=== PATIENT | male | born 1960 | race Asian ===

== ENCOUNTER 2019-07-23 12:04 | Inpatient (IN) | payer OTHER ==
[~2019-07-23] VITALS: Ht 172.7 cm; Wt 87.0 kg
--- NOTE | 2019-07-23 12:10 | NUR ---
LATE ENTRY D/T PATIENT CARE: PT BROUGHT BY [facility] FROM [facility]; PT REPORTS HE AWOKE THIS AM (UNABLE TO RECALL TIME BUT STATES "BETWEEN 7 AND 9AM") WITH SLURRED SPEECH AND DIZZINESS. PT PRESENTED TO [facility] AT 1020 AM, CT HEAD PERFORMED AT [facility] SHOWED 8-9MM MOLINA BLEED. PER EMS, PT'S INITIAL BP AT [facility] WAS SYSTOLIC 240. ON ARRIVAL, PT'S SPEECH IS CLEAR, SLIGHT LEFT MOUTH DROOP NOTED. PT IS SLIGHTLY WEAKER TO LEFT UPPER AND LOWER EXTREMITY, LEFT GRASP SLIGHTLY WEAKER. LEFT UPPER ARM WAVERS SLIGHTLY WHEN PERFORMING DRIFT ASSESSMENT, HOWEVER THERE IS NO DRIFT TO UPPER OR LOWER EXTREMITIES. PUPILS ARE EQUAL, ROUND AND REACTIVE. PT IS A&OX4, DENIES PAIN, DENIES N/T. PT FOLLOWS COMMANDS AND SPEAKS IN FULL SENTENCES. PT REPORTS BLURRINESS TO LEFT VISUAL FEILD. EKG COMPLETED ON ARRIVAL BY EDT, FINGERSTICK GLUCOSE OBTAINED (132), PT ATTACHED TO ALL MONITORS. MD HAN AT BEDSIDE PERFORMING INITIAL ASSESSMENT. HEAD OF BED KEPT AT 15 DEGREES PER MD ORDER. PT ARRIVED TO ED ON NICARDAMINE GTT STARTED SIGNAL OPERATOR LINGUIST AT 5MG/HR, MD GAVE VERBAL ORDER TO CONTINUE THIS DRIP AT 5MG/HR. PER MD, TARGET BP IS SYSTOLIC 130-140. PT CHANGED INTO YELLOW GOWN. BILATERAL AC [address], PLACED SIGNAL OPERATOR LINGUIST. BOTH FLUSH EASILY WITH BLOOD RETURN. CALL LIGHT IN REACH, PT UPDATED WITH POC.
[2019-07-23] MEDS ORDERED: SODIUM CHLORIDE FLUSH 10ML SYR IVF ONE (12:30)
[2019-07-23] MEDS ORDERED: PLEASE ENTER HEIGHT AND WEIGHT MC SCH (12:30)
[2019-07-23] MEDS ORDERED: PLEASE ENTER ALLERGIES MC SCH (12:30)
--- NOTE | 2019-07-23 12:30 | NUR ---
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 IMAGING RESULTS FROM [facility] HAVE BEEN SENT WITH PATIENT, HOWEVER NO LAB RESULTS HAVE ARRIVED WITH PT.
--- NOTE | 2019-07-23 12:35 | NUR ---
LATE ENTRY D/T PATIENT CARE: PT TO CT WITH ED RN AND EDT. PER MD HAN, CT IS NOT TO BE DELAYED FOR LAB RESULTS.
--- NOTE | 2019-07-23 12:58 | NUR ---
PT BACK FROM CT, ALL MONITORS IN PLACE. PT REMAINS A&OX4, RESPS EVEN AND UNLABORED. NEURO STATUS UNCHANGED.
[2019-07-23] MEDS ORDERED: OMNIPAQUE 350 MG/ML, 100ML BOTTLE ONE (13:02)
--- NOTE | 2019-07-23 13:06 | NUR ---
LATE ENTRY D/T PATIENT CARE: NEW NICARDAMINE GTT ARRIVED FROM PHARMACY, NICARDAMINE GTT STARTED BY EMS EXCHANGED FOR NICARADMINE GTT PROVIDED BY [facility].
--- NOTE | 2019-07-23 13:16 | NUR ---
PT IS AWAKE, ALERT AND ORIENTED X 4. PT DENIES PAIN, DENIES NAUSEA, DENIES N/T. PT DEMONSTRATES SLIGHT WEAKNESS TO LEFT UPPER EXTREMITY, AND LEFT LOWER EXTREMITY, LEFT DORSIFLEXION IS SLIGHTLY WEAKER THAN RIGHT, LEFT GRASP SLIGHTLY WEAKER THAN RIGHT. MILD LEFT SIDED MOUTH DROOP STILL PRESENT. MILD LEFT SIDED PT REPORTS LEFT SIDED BLURRED VISION SINCE AWAKENING THIS AM, HOWEVER PT REPORTS THIS IS IMPROVING AT THIS TIME. PT'S NEURO STATUS HAS REMAINED UNCHANGED SINCE ARRIVAL. PT DENIES N/T, DENIES NAUSEA, DENIES PAIN. PUPILS EQUAL, ROUND AND REACTIVE. HEAD OF BED MAINTAINED AT 15 DEGREES PER MD ORDER. NICARDIPINE GTT IS CONTINUED AT 5MG/HR. AWAITING CTA RESULTS AND DISPO.
--- NOTE | 2019-07-23 13:26 | NUR ---
PT'S SON AND DAUGHTER HAVE ARRIVED AND ARE AT BEDSIDE, UPDATED WITH POC WITH PT PERMISSION. RECORDS WITH LAB RESULTS HAVE NOT ARRIVED YET FROM MD EMELY LYONS INFORMED. ORDERED LABS TO BE DRAWN. LAB AT BEDSIDE TO DRAW.
[2019-07-23] MEDS ORDERED: METOPROLOL PO (13:42)
[2019-07-23] MEDS ORDERED: LISINOPRIL PO (13:42)
[2019-07-23] MEDS ORDERED: INDOMETHACIN PO (13:42)
--- NOTE | 2019-07-23 13:42 | NUR ---
PT IS UNABLE TO RECALL DOSEAGES OF HOME MEDS, MED REC COMPLETED TO BEST OF PATIENT ABILITY.
[2019-07-23 13:45] LABS: INTERNATIONAL NORMALIZED RATIO 1.02 (0.93-1.1); PROTHROMBIN TIME 10.7 Seconds (9.6-11.5)
[2019-07-23 13:48] LABS: ALANINE AMINOTRANSFERASE 30 U/L (12-78); ANION GAP 7 mmol/L (5-15); CHLORIDE 103 mmol/L (98-107)
[2019-07-23 13:52] LABS: ALKALINE PHOSPHATASE 91 U/L (45-117); BILIRUBIN,TOTAL 0.6 mg/dL (0.2-1.0); TOTAL PROTEIN 8.8 g/dL (6.4-8.2)
--- NOTE | 2019-07-23 13:56 | NUR ---
report given to receiving HANK Olvera. pt awaiting transport to CCU at this time.
[2019-07-23 14:00] LABS: TROPONIN I 0.594 ng/mL (0.000-0.045)
--- NOTE | 2019-07-23 14:04 | NUR ---
MD HAN NOTIFIED PT'S TROPONIN IS 0.594. PER , NO ASPIRIN INDICATED. NO ADDITIONAL ORDERS GIVEN. OK'D TRANSPORT TO CCU.
--- NOTE | 2019-07-23 14:18 | NUR ---
PT TRANSPORTED BY RN AND TECH TO CCU ROOM 558. FAMILY ACCOMPANIED. UPON TRANSFER, PT HAD NO NEUROLOGICAL CHANGES. 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 PT HAD NO COMPLAINT AT TIME OF TRANSFER. RECEIVING RN NOTIFIED OF ELEVATED TROPONIN OF 0.594. PT MAINTAINED ON NICARDAMINE GTT AT 5MG/HR AT TIME OF TRANSFER. NADN AT TRANSFER. PT AND FAMILY UPDATED WITH POC.
[2019-07-23] MEDS ORDERED: ENALAPRILAT 1.25 MG/ML, 2ML IVPush PRN (16:00)
[2019-07-23] MEDS ORDERED: ONDANSETRON ODT 4 MG PO PRN (16:00)
[2019-07-23] MEDS ORDERED: LABETALOL 5MG/ML, 20ML IVPush PRN (16:00)
[2019-07-23] MEDS ORDERED: BISACODYL 10 MG SUPP PR PRN (16:00)
[2019-07-23] MEDS ORDERED: ONDANSETRON 2MG/ML, 2ML IVPush PRN (16:00)
[2019-07-23] MEDS ORDERED: POLYETHYLENE GLYCOL 17 GM PACKET PO PRN (16:00)
[2019-07-23] MEDS ORDERED: FLU VACC QS2019-20 36MOS UP/PF 0.5 ML IM-VACC ONE (17:00)
[2019-07-23] MEDS: METOPROLOL TARTRATE 25 MG TABLET PO SCH (18:20)
[2019-07-23 19:51] LABS: TROPONIN I 0.566 ng/mL (0.000-0.045)
[2019-07-23] MEDS: LISINOPRIL 20 MG TABLET PO SCH (20:33)
[2019-07-24 01:40] LABS: TROPONIN I 0.573 ng/mL (0.000-0.045)
[2019-07-24] MEDS: ACETAMINOPHEN 325 MG TABLET PO PRN ×2 (03:24→12:24)
[2019-07-24 04:14] VITALS: BP 108/65
[2019-07-24] MEDS: METOPROLOL TARTRATE 25 MG TABLET PO SCH ×2 (05:58→17:03)
[2019-07-24 08:21] LABS: BASOPHILS # (AUTO) 0.03 x10^3/uL (0-0.1); BASOPHILS % (AUTO) 0 % (0-1); EOSINOPHILS % (AUTO) 2 % (1-7); LYMPHOCYTES % (AUTO) 23 % (22-44); MD NO; MEAN CORPUSCULAR HEMOGLOBIN 30.5 pg (27.5-34.5); MEAN CORPUSCULAR HGB CONC 33.5 g/dL (33.2-36.2); MEAN CORPUSCULAR VOLUME 91.1 fL (81-97); MEAN PLATELET VOLUME 8.1 fL (7.4-10.4); MONOCYTES # (AUTO) 0.59 x10^3/uL (0.2-0.8); MONOCYTES % (AUTO) 6 % (2-9); NEUTROPHILS # (AUTO) 6.65 x10^3/uL (1.8-6.8); NEUTROPHILS % (AUTO) 69 % (42-75); PLATELET COUNT 280 x10^3/uL (130-400); RED BLOOD COUNT 5.29 x10^6/uL (4.38-5.82); RED CELL DISTRIBUTION WIDTH 12.4 % (9.4-14.8)
[2019-07-24 08:33] LABS: ALANINE AMINOTRANSFERASE 26 U/L (12-78); ALBUMIN 3.5 g/dL (3.4-5.0); ANION GAP 7 mmol/L (5-15); CALCIUM 8.5 mg/dL (8.5-10.1); CHLORIDE 105 mmol/L (98-107)
[2019-07-24 08:36] LABS: ALKALINE PHOSPHATASE 80 U/L (45-117); BILIRUBIN,TOTAL 0.5 mg/dL (0.2-1.0); CREATININE 1.16 mg/dL (0.7-1.3); TOTAL PROTEIN 7.8 g/dL (6.4-8.2)
[2019-07-24 08:44] LABS: TROPONIN I 0.499 ng/mL (0.000-0.045)
[2019-07-24] MEDS: SENNA/DOCUSATE TABLET PO SCH (09:33)
[2019-07-24] MEDS: LISINOPRIL 20 MG TABLET PO SCH ×2 (09:34→20:26)
[2019-07-24] MEDS: ALLOPURINOL 300 MG TABLET PO SCH (09:34)
[2019-07-24] MEDS: hydrALAzine 20 MG/ML, 1ML IVPush PRN ×3 (12:24→23:33)
[2019-07-24] MEDS: POTASSIUM CHLORIDE 20 MEQ TAB.ER.PRT PO SCH (17:03)
[2019-07-25] MEDS ORDERED: MELATONIN 3 MG TABLET PO PRN (00:30)
[2019-07-25 04:00] VITALS: BP 130/70
[2019-07-25] MEDS: METOPROLOL TARTRATE 25 MG TABLET PO SCH ×2 (06:49→17:19)
[2019-07-25] MEDS: hydrALAzine 20 MG/ML, 1ML IVPush PRN ×2 (07:31→13:34)
[2019-07-25] MEDS: SENNA/DOCUSATE TABLET PO SCH (08:05)
[2019-07-25] MEDS: POTASSIUM CHLORIDE 20 MEQ TAB.ER.PRT PO SCH (08:55)
[2019-07-25] MEDS: LISINOPRIL 20 MG TABLET PO SCH ×2 (08:55→21:13)
[2019-07-25] MEDS: ALLOPURINOL 300 MG TABLET PO SCH (08:55)
[2019-07-25 09:59] VITALS: BP 147/82
[2019-07-25 12:48] VITALS: BP 150/71
[2019-07-25 14:00] VITALS: BP 132/68
[2019-07-25 20:05] VITALS: BP 145/90
[2019-07-26] VITALS (13 sets, daily range): BP systolic 131–158; BP diastolic 77–97
[2019-07-26] MEDS: hydrALAzine 20 MG/ML, 1ML IVPush PRN ×2 (01:44→06:22)
[2019-07-26] MEDS ORDERED: ENALAPRILAT 1.25 MG/ML, 1ML ONE (03:48)
[2019-07-26] MEDS: METOPROLOL TARTRATE 25 MG TABLET PO SCH ×2 (08:00→18:05)
[2019-07-26] MEDS: AMLODIPINE 5 MG TABLET PO SCH ×3 (08:52→20:12)
[2019-07-26] MEDS: SENNA/DOCUSATE TABLET PO SCH (08:52)
[2019-07-26] MEDS: ALLOPURINOL 300 MG TABLET PO SCH (08:52)
[2019-07-26] MEDS: CHLORTHALIDONE 25 MG TABLET PO SCH ×2 (08:52→09:00)
[2019-07-26] MEDS: LISINOPRIL 20 MG TABLET PO SCH ×2 (08:52→20:13)
[2019-07-26] MEDS: ACETAMINOPHEN 325 MG TABLET PO PRN (20:12)
[2019-07-27 00:38] VITALS: BP 133/85
[2019-07-27 05:45] VITALS: BP 147/88
[2019-07-27] MEDS: METOPROLOL TARTRATE 25 MG TABLET PO SCH (05:47)
[2019-07-27] MEDS: hydrALAzine 20 MG/ML, 1ML IVPush PRN (05:51)
[2019-07-27 06:39] LABS: BASOPHILS # (AUTO) 0.02 x10^3/uL (0-0.1); BASOPHILS % (AUTO) 0 % (0-1); EOSINOPHILS # (AUTO) 0.28 x10^3/uL (0-0.4); EOSINOPHILS % (AUTO) 3 % (1-7); LYMPHOCYTES # (AUTO) 1.91 x10^3/uL (1-3.4); LYMPHOCYTES % (AUTO) 17 % (22-44); MD NO; MEAN CORPUSCULAR HEMOGLOBIN 31.1 pg (27.5-34.5); MEAN CORPUSCULAR HGB CONC 33.6 g/dL (33.2-36.2); MEAN CORPUSCULAR VOLUME 92.3 fL (81-97); MEAN PLATELET VOLUME 8.3 fL (7.4-10.4); MONOCYTES # (AUTO) 0.94 x10^3/uL (0.2-0.8); MONOCYTES % (AUTO) 8 % (2-9); NEUTROPHILS # (AUTO) 8.31 x10^3/uL (1.8-6.8); NEUTROPHILS % (AUTO) 73 % (42-75); PLATELET COUNT 261 x10^3/uL (130-400); RED BLOOD COUNT 5.27 x10^6/uL (4.38-5.82); RED CELL DISTRIBUTION WIDTH 12.8 % (9.4-14.8)
[2019-07-27 06:53] LABS: CHLORIDE 105 mmol/L (98-107)
[2019-07-27 07:00] LABS: ALANINE AMINOTRANSFERASE 22 U/L (12-78); ALBUMIN 3.6 g/dL (3.4-5.0); ALKALINE PHOSPHATASE 78 U/L (45-117); ANION GAP 9 mmol/L (5-15); BILIRUBIN,TOTAL 0.8 mg/dL (0.2-1.0); CALCIUM 8.6 mg/dL (8.5-10.1); CREATININE 1.01 mg/dL (0.7-1.3); TOTAL PROTEIN 8.3 g/dL (6.4-8.2)
[2019-07-27] MEDS ORDERED: POTASSIUM CHLORIDE 20 MEQ TAB.ER.PRT PO ONE ×2 (07:30→11:30)
[2019-07-27 08:05] VITALS: BP 137/89
[2019-07-27] MEDS: CHLORTHALIDONE 25 MG TABLET PO SCH (09:00)
[2019-07-27] MEDS: ALLOPURINOL 300 MG TABLET PO SCH (09:10)
[2019-07-27] MEDS: SENNA/DOCUSATE TABLET PO SCH (09:10)
[2019-07-27] MEDS: AMLODIPINE 5 MG TABLET PO SCH ×2 (09:10→21:16)
[2019-07-27] MEDS: LISINOPRIL 20 MG TABLET PO SCH ×2 (09:10→21:16)
[2019-07-27 15:18] VITALS: BP 126/76
[2019-07-27] MEDS: ACETAMINOPHEN 325 MG TABLET PO PRN (18:22)
[2019-07-27 19:40] VITALS: BP 133/73
[2019-07-27 21:14] VITALS: BP 134/83
[2019-07-28] MEDS: ACETAMINOPHEN 325 MG TABLET PO PRN (00:43)
[2019-07-28 00:45] VITALS: BP 125/70
[2019-07-28 04:38] VITALS: BP 126/77
[2019-07-28] MEDS ORDERED: LISI-170 PO (07:45)
[2019-07-28] MEDS ORDERED: CHLO25TA PO (07:45)
[2019-07-28] MEDS ORDERED: ALLO300T PO (07:45)
[2019-07-28] MEDS ORDERED: AMLO-150 PO (07:45)
[2019-07-28] MEDS: ALLOPURINOL 300 MG TABLET PO SCH (07:52)
[2019-07-28] MEDS: LISINOPRIL 20 MG TABLET PO SCH (07:53)
[2019-07-28] MEDS: SENNA/DOCUSATE TABLET PO SCH (07:53)
[2019-07-28] MEDS: AMLODIPINE 5 MG TABLET PO SCH (07:54)
[2019-07-28] MEDS: CHLORTHALIDONE 25 MG TABLET PO SCH (07:54)
[2019-07-28 07:57] VITALS: BP 127/79
[2019-07-28 08:00] LABS: BASOPHILS # (AUTO) 0.04 x10^3/uL (0-0.1); BASOPHILS % (AUTO) 0 % (0-1); EOSINOPHILS # (AUTO) 0.09 x10^3/uL (0-0.4); EOSINOPHILS % (AUTO) 1 % (1-7); LYMPHOCYTES # (AUTO) 1.79 x10^3/uL (1-3.4); LYMPHOCYTES % (AUTO) 15 % (22-44); MD NO; MEAN CORPUSCULAR HEMOGLOBIN 30.6 pg (27.5-34.5); MEAN CORPUSCULAR HGB CONC 33.7 g/dL (33.2-36.2); MEAN CORPUSCULAR VOLUME 90.8 fL (81-97); MEAN PLATELET VOLUME 7.7 fL (7.4-10.4); MONOCYTES % (AUTO) 11 % (2-9); NEUTROPHILS # (AUTO) 8.49 x10^3/uL (1.8-6.8); NEUTROPHILS % (AUTO) 73 % (42-75); PLATELET COUNT 274 x10^3/uL (130-400); RED BLOOD COUNT 5.16 x10^6/uL (4.38-5.82); RED CELL DISTRIBUTION WIDTH 12.7 % (9.4-14.8)
[2019-07-28 08:12] LABS: ALBUMIN 3.6 g/dL (3.4-5.0); ANION GAP 9 mmol/L (5-15); CALCIUM 8.9 mg/dL (8.5-10.1); CHLORIDE 104 mmol/L (98-107)
[2019-07-28 08:15] LABS: ALANINE AMINOTRANSFERASE 22 U/L (12-78); ALKALINE PHOSPHATASE 80 U/L (45-117); BILIRUBIN,TOTAL 1.2 mg/dL (0.2-1.0); CREATININE 1.19 mg/dL (0.7-1.3); TOTAL PROTEIN 8.2 g/dL (6.4-8.2)
[2019-07-28 09:28] VITALS: BP 127/83
== END 2019-07-28 12:00 | disposition home or self-care (01) | DRG 65 ==
LOC: ED 12:46 → EDIP 13:25 → CCU 14:11 → CSU 07-25 04:37 → 4WST 07-25 09:10 → DCLOUNGE 07-28 11:55
PROVIDERS: ADMIT Internal Medicine; ATTEND Hospitalist
DX: I61.3 Nontraumatic intracerebral hemorrhage in brain stem (principal); E87.1 Hypo-osmolality and hyponatremia; I50.32 Chronic diastolic (congestive) heart failure; I16.9 Hypertensive crisis, unspecified; G81.94 Hemiplegia, unspecified affecting left nondominant side; E87.6 Hypokalemia; H53.2 Diplopia; I11.0 Hypertensive heart disease with heart failure; J32.4 Chronic pansinusitis; M10.9 Gout, unspecified; R73.9 Hyperglycemia, unspecified; R27.0 Ataxia, unspecified; R29.810 Facial weakness; Z80.41 Family history of malignant neoplasm of ovary; Z82.49 Family history of ischemic heart disease and other diseases of the circulatory system
CPT/HCPCS: 36415; 70450; 70496; 70551; 71045; 80053; 82962; 83735; 84100; 84484; 85025; 85610; 87081; 90686; 93005; 93306; G0378; J7060; Q9967; J0360